=== PATIENT | female | born 1970 | race Hispanic/Latino ===

== ENCOUNTER 2019-02-05 15:41 | Emergency (ER) | payer SELFPAY ==
[2019-02-05] MEDS ORDERED: Acetaminophen 500 MG TAB ONE (16:50)
[2019-02-05] MEDS ORDERED: Metoclopramide HCl 10 MG/2 ML VIAL ONE (16:50)
[2019-02-05] MEDS ORDERED: diphenhydrAMINE 50 MG/ML VIAL ONE (16:50)
--- NOTE | 2019-02-05 17:43 | CT ---
CT OF BRAIN PERFORMED WITHOUT CONTRAST ENHANCEMENT: History: Headache x 3 days. FINDINGS: The ventricular and cisternal system is within normal limits. There are no signs of intracerebral hem orrhage or extraaxial fluid collections. The mastoid air cells and visualized sinuses are clear. IMPRESSION: No acute intracranial abnormalities. POS: [facility]
[2019-02-05] MEDS ORDERED: Ketorolac Tromethamine 30 MG/ML VIAL ONE (18:12)
== END 2019-02-05 19:05 | disposition home or self-care (01) ==
LOC: ERS 15:41
DX: R51 Headache (principal)
CPT/HCPCS: 70450; 96365; 96375; J1200; J1885; J2765